=== PATIENT | male | born 1995 | race Hispanic/Latino ===

== ENCOUNTER 2022-06-03 11:07 | Emergency (ER) | payer OTHER ==
[~2022-06-03] VITALS: Ht 175.3 cm; Wt 89.4 kg
[2022-06-03] MEDS ORDERED: PROPARACAINE 0.5% OPHTH SOL 15ML OS ONE (12:25)
[2022-06-03] MEDS ORDERED: FLUORESCEIN OPHTH 1 MG STRIP OS ONE (12:25)
[2022-06-03] MEDS ORDERED: DERMABOND TOPICAL SKIN ADHESIVE TOP ONE (13:05)
[2022-06-03] MEDS ORDERED: AMOX875T2 PO (13:25)
[2022-06-03 13:31] VITALS: BP 128/84
== END 2022-06-03 13:33 | disposition home or self-care (01) ==
LOC: M ED 11:07
DX: S01.112A Laceration without foreign body of left eyelid and periocular area, initial encounter (principal); S05.12XA Contusion of eyeball and orbital tissues, left eye, initial encounter; Y04.8XXA Assault by other bodily force, initial encounter